=== PATIENT | male | born 1940 | race Caucasian/White ===

== ENCOUNTER → 2018-05-03 | Outpatient (CLI) | payer OTHER ==
[~2018-05-03] MED LIST: ASPIRIN81 M1 PO; COREG3.125 MG PO; KEFLEX500 MG PO; LISINOPRIL2.5 MG PO; SIMVASTATIN40 MG PO
[2018-05-03 09:32] LABS: CHLORIDE 106 mmol/L (98-107); POTASSIUM 4.3 mmol/L (3.5-5.1); SODIUM 139 mmol/L (136-145)
[2018-05-03 09:39] LABS: BUN 26 mg/dl (7-24); CHOLESTEROL 122 mg/dL (<200); CREATININE 1.12 mg/dL (0.70-1.30); HDL CHOLESTEROL 45 mg/dl (40-60); LDL CHOLESTEROL 61 mg/dL (9-159); SGOT/AST 11 IU/L (3-35); SGPT/ALT 15 U/L (12-78); TRIGLYCERIDES 80 mg/dl (<150); VLDL CHOLESTEROL 16 mg/dL (6-40)
== END | disposition home or self-care (01) ==
LOC: LAB 07:53
PROVIDERS: Internal Medicine Interventional Cardiology
DX: I25.10 Atherosclerotic heart disease of native coronary artery without angina pectoris (principal); I10 Essential (primary) hypertension; E78.2 Mixed hyperlipidemia; I65.29 Occlusion and stenosis of unspecified carotid artery

== ENCOUNTER → 2018-05-10 | Outpatient (CLI) | payer OTHER | END | disposition home or self-care (01) | LOC: US 09:47 | DX: I65.23 Occlusion and stenosis of bilateral carotid arteries (principal); I25.10 Atherosclerotic heart disease of native coronary artery without angina pectoris; I10 Essential (primary) hypertension; E78.2 Mixed hyperlipidemia ==

== ENCOUNTER → 2023-07-29 | Outpatient (CLI) | payer OTHER ==
[2023-07-29 12:53] LABS: BUN 19 mg/dl (9-23); CHLORIDE 105 mmol/L (98-107); CHOLESTEROL 94 mg/dL (<200); LDL CHOLESTEROL 40 mg/dL (9-159); POTASSIUM 4.4 mmol/L (3.4-5.1); SGPT/ALT < 7 U/L (10-49); TRIGLYCERIDES 67 mg/dl (<150)
== END | disposition home or self-care (01) ==
LOC: LAB 11:26
PROVIDERS: ATTEND Internal Medicine Interventional Cardiology
DX: E78.2 Mixed hyperlipidemia (principal); I25.10 Atherosclerotic heart disease of native coronary artery without angina pectoris; R73.9 Hyperglycemia, unspecified

== ENCOUNTER 2024-10-30 08:08 | Inpatient (IN) | payer OTHER ==
[~2024-10-30] VITALS: Ht 172.7 cm; Wt 86.0 kg
[2024-10-30] VITALS (37 sets, daily range): BP systolic 65–146; BP diastolic 31–84
[2024-10-30] MEDS ORDERED: Piperacillin Sodium/Tazobact 100 ML IV ONE (08:35)
[2024-10-30] MEDS ORDERED: Vancomycin Hydrochloride 250 ML IV ONE (08:35)
[2024-10-30] MEDS ORDERED: Albuterol Sulf/Ipratropium 3 ML VIAL NEB SCH ×2 (08:45→13:10)
[2024-10-30 09:13] LABS: HEMATOCRIT 27.5 % (42.0-52.0); MEAN CELL VOLUME 99.3 fl (80.0-94.0); MEAN CORPUSCULAR HGB 31.4 pg (27.0-31.0); MEAN CORPUSCULAR HGB CONC 31.6 g/dl (33.0-37.0); PLATELET COUNT AUTOMATED 34 10*3/uL (130-400); RED BLOOD COUNT 2.77 10*6/uL (4.50-5.90); WHITE BLOOD COUNT 32.1 10*3/uL (4.8-10.8)
[2024-10-30 09:14] LABS: ARTERIAL BLOOD GAS PH 7.279 (7.350-7.450)
[2024-10-30 09:15] LABS: ABG BASE EXCESS -4.5 mmol/L (-2.0-3.0)
[2024-10-30 09:21] LABS: MANUAL DIFF REFLEX YES
[2024-10-30 09:22] LABS: POTASSIUM 4.6 mmol/L (3.4-5.1); TOTAL PROTEIN 6.5 gm/dL (6.0-8.0)
[2024-10-30 09:24] LABS: ACANTHOCYTES FEW; BASOPHILS 2 % (0-1); OVALOCYTES FEW; PLATELET SUFFICIENCY LOW (NORMAL); POLYCHROMASIA SLIGHT; SCHISTOCYTES FEW; TOTAL CELLS COUNTED 100 #CELLS
[2024-10-30 09:25] LABS: TARGET CELLS FEW
[2024-10-30] MEDS ORDERED: ASPIRIN, CHEWABLE 81 MG TAB PO ONE (09:25)
[2024-10-30] MEDS ORDERED: SODIUM CHLORIDE 0.9% 100 ML BAG IV ONE (09:50)
[2024-10-30] MEDS ORDERED: Iodixanol 320 100 ML VIAL IV ONE (09:50)
[2024-10-30] MEDS ORDERED: SODIUM CHLORIDE 0.9% 1,000 ML IV ONE (09:55)
[2024-10-30] MEDS ORDERED: Acetaminophen/Hydrocodone 5 MG/325 MG TABLET PO PRN (10:30)
[2024-10-30] MEDS ORDERED: Ondansetron Hydrochloride 4 MG/2 ML VIAL IV PRN (10:30)
[2024-10-30] MEDS ORDERED: BISACODYL 5 MG TAB PO PRN (10:30)
[2024-10-30] MEDS ORDERED: ACETAMINOPHEN 325 MG TAB PO PRN (10:30)
[2024-10-30] MEDS ORDERED: HEPARIN SODIUM 250 ML IV SCH (12:35)
[2024-10-30] MEDS ORDERED: ATORVASTATIN CALCIUM 40 MG TABLET PO SCH (13:20)
[2024-10-30] MEDS ORDERED: AZITHROMYCIN 250 ML IV SCH (14:00)
[2024-10-30] MEDS ORDERED: SODIUM CHLORIDE 0.9% 500 ML IV ONE ×2 (14:45→14:59)
[2024-10-30] MEDS ORDERED: FUROSEMIDE 40 MG/4 ML VIAL IV ONE ×2 (16:25→23:30)
[2024-10-30] MEDS ORDERED: NOREPINEPHRINE BITARTRATE/D5W 250 ML IV SCH (16:25)
[2024-10-30] MEDS ORDERED: LORazepam 2 MG/ML VIAL IV ONE (16:40)
[2024-10-30] MEDS ORDERED: NOREPINEPHRINE BITARTRATE/D5W 250 ML IV ONE (16:45)
[2024-10-30] MEDS ORDERED: LORazepam 2 MG/ML VIAL ONE (16:55)
[2024-10-30] MEDS ORDERED: DEXMEDETOMIDINE IN 0.9 % NACL 100 ML IV SCH (17:15)
[2024-10-30 17:28] LABS: BILIRUBIN 1+ (Negative); BLOOD Negative (Negative); CLARITY Clear (Clear); COLOR Dark Yellow (Yellow); GLUCOSE Negative (Negative); KETONE Trace (Negative); LEUKO ESTERASE Negative (Negative); NITRITE Negative (Negative); SPECIFIC GRAVITY >= 1.030 (1.001-1.030)
[2024-10-30 17:40] LABS: BACTERIA 1+; CALCIUM OXALATE CRYSTALS Trace
[2024-10-30] MEDS ORDERED: CEFEPIME HCL IN DEXTROSE 5 % 50 ML IV SCH (18:00)
[2024-10-30] MEDS ORDERED: VASOPRESSIN 100 ML IV SCH (19:10)
[2024-10-30] MEDS ORDERED: CALCIUM GLUC IN NACL, ISO-OSM 100 ML IV ONE (19:20)
[2024-10-30] MEDS ORDERED: SODIUM BICARBONATE 50 MEQ/50 ML VIAL IV ONE (19:20)
[2024-10-30 19:24] LABS: ABG O2 SATURATION 91.1 % (94.0-98.0); ARTERIAL BLOOD GAS PH 7.275 (7.350-7.450); ARTERIAL BLOOD GAS PO2 68.8 mmHg (83.0-108.0)
[2024-10-30] MEDS ORDERED: VASOPRESSIN 100 ML IV ONE (19:25)
[2024-10-30 19:26] LABS: ABG BASE EXCESS -6.4 mmol/L (-2.0-3.0)
[2024-10-30 21:28] LABS: MEAN CELL VOLUME 100.4 fl (80.0-94.0); MEAN CORPUSCULAR HGB CONC 30.9 g/dl (33.0-37.0); PLATELET COUNT AUTOMATED 30 10*3/uL (130-400); RED BLOOD COUNT 2.29 10*6/uL (4.50-5.90); RED CELL DISTRI WIDTH 17.2 % (0-14.5); WHITE BLOOD COUNT 36.2 10*3/uL (4.8-10.8)
[2024-10-30 21:30] LABS: MANUAL DIFF REFLEX YES
[2024-10-30 21:51] LABS: TOTAL CELLS COUNTED 100 #CELLS
[2024-10-30 21:54] LABS: ACANTHOCYTES FEW; BURR CELLS FEW; PLATELET SUFFICIENCY LOW (NORMAL); TARGET CELLS FEW
[2024-10-30] MEDS ORDERED: GUAIFENESIN 600 MG TAB ER PO SCH (22:00)
[2024-10-30] MEDS ORDERED: Haloperidol Lactate 5 MG/ML AMP IV PRN (22:15)
[2024-10-31] VITALS (50 sets, daily range): BP systolic 61–138; BP diastolic 31–66
[2024-10-31 04:33] LABS: HEMATOCRIT 21.8 % (42.0-52.0); MEAN CELL VOLUME 98.6 fl (80.0-94.0); MEAN CORPUSCULAR HGB 30.8 pg (27.0-31.0); MEAN CORPUSCULAR HGB CONC 31.2 g/dl (33.0-37.0); PLATELET COUNT AUTOMATED 30 10*3/uL (130-400); RED BLOOD COUNT 2.21 10*6/uL (4.50-5.90); RED CELL DISTRI WIDTH 17.2 % (0-14.5); WHITE BLOOD COUNT 31.2 10*3/uL (4.8-10.8)
[2024-10-31 04:34] LABS: MANUAL DIFF REFLEX YES
[2024-10-31 05:08] LABS: FREE T4 0.78 ng/dl (0.89-1.76); POTASSIUM 4.3 mmol/L (3.4-5.1); TOTAL PROTEIN 5.7 gm/dL (6.0-8.0)
[2024-10-31 05:14] LABS: VITAMIN D, 25-HYDROXY 44.3 ng/mL (30-100)
[2024-10-31 05:26] LABS: ATYPICAL LYMPHS 1 % (0-0); PLATELET SUFFICIENCY LOW (NORMAL); POLYCHROMASIA SLIGHT; TOTAL CELLS COUNTED 100 #CELLS
[2024-10-31 05:27] LABS: ACANTHOCYTES FEW; BURR CELLS FEW; SCHISTOCYTES FEW; TARGET CELLS FEW
[2024-10-31 05:28] LABS: TOXIC GRANULATION SLIGHT
[2024-10-31] MEDS ORDERED: SODIUM CHLORIDE 0.9% 500 ML IV ONE (05:41)
[2024-10-31] MEDS ORDERED: VANCOMYCIN/WATER FOR INJ (PEG) 250 ML IV SCH (06:00)
[2024-10-31] MEDS ORDERED: FUROSEMIDE 40 MG/4 ML VIAL IV SCH ×2 (06:00→10:00)
[2024-10-31] MEDS ORDERED: SUCRALFATE 1 GM TAB PO SCH (07:30)
[2024-10-31] MEDS ORDERED: Succinylcholine Chloride 200 MG/10 ML SYRINGE IV ONE (09:41)
[2024-10-31] MEDS ORDERED: ETOMIDATE 20 MG/10 ML VIAL IV ONE (09:41)
[2024-10-31] MEDS ORDERED: ASPIRIN ENTERIC COATED 81 MG TAB PO SCH (10:00)
[2024-10-31] MEDS ORDERED: Albuterol Sulf/Ipratropium 3 ML VIAL NEB SCH (10:20)
[2024-10-31] MEDS ORDERED: IPRATROPIUM BROMIDE 0.5 MG/2.5 ML AMP NEB SCH (10:20)
[2024-10-31] MEDS ORDERED: PROPOFOL 100 ML IV ONE ×2 (10:52→13:30)
[2024-10-31] MEDS ORDERED: VANCOMYCIN1.25 GM/21 IV (11:47)
[2024-10-31] MEDS ORDERED: [UNRECOGNIZED DRUG - OTHER] IV (11:47)
[2024-10-31] MEDS ORDERED: CEFEPIME2 GM/100 M IV (11:47)
[2024-10-31] MEDS ORDERED: Protonix IV (11:47)
[2024-10-31] MEDS ORDERED: PRECEDEX IV (11:47)
[2024-10-31] MEDS ORDERED: AZITHROMYCIN500 M1 IV (11:47)
[2024-10-31] MEDS ORDERED: NOREPINEPH4 MG/2505 IV (11:47)
[2024-10-31] MEDS ORDERED: Carafate1 GM PO (11:47)
[2024-10-31] MEDS ORDERED: PROPOFOL 50 ML IV SCH (11:50)
[2024-10-31] MEDS ORDERED: Pantoprazole Sodium 40 MG VIAL IV SCH (18:00)
== END 2024-10-31 13:30 | disposition short-term general hospital (02) | DRG 871 ==
LOC: ED 08:08 → EDHOLD 10:05 → ICCU 10:05 → EDHOLD 10:37 → ICCU 14:19
PROVIDERS: Emergency Medicine; Student in an Organized Health Care Education/Training Program; ADMIT Internal Medicine; ATTEND Internal Medicine
PROC: 02HV33Z Insertion of Infusion Device into Superior Vena Cava, Percutaneous Approach (ICD-10-PCS; 2024-10-30)
PROC: B548ZZA Ultrasonography of Superior Vena Cava, Guidance (ICD-10-PCS; 2024-10-30)
PROC: 5A09357 Assistance with Respiratory Ventilation, Less than 24 Consecutive Hours, Continuous Positive Airway Pressure (ICD-10-PCS; 2024-10-30)
PROC: 30233N1 Transfusion of Nonautologous Red Blood Cells into Peripheral Vein, Percutaneous Approach (ICD-10-PCS; principal; 2024-10-31)
PROC: 0BH17EZ Insertion of Endotracheal Airway into Trachea, Via Natural or Artificial Opening (ICD-10-PCS; 2024-10-31)
DX: A41.9 Sepsis, unspecified organism (principal); I21.A1 Myocardial infarction type 2; J15.69 Pneumonia due to other Gram-negative bacteria; J96.01 Acute respiratory failure with hypoxia; N17.0 Acute kidney failure with tubular necrosis; R65.21 Severe sepsis with septic shock; E44.0 Moderate protein-calorie malnutrition; E87.1 Hypo-osmolality and hyponatremia; E87.20 Acidosis, unspecified; K92.2 Gastrointestinal hemorrhage, unspecified; I48.91 Unspecified atrial fibrillation; D64.9 Anemia, unspecified; Z96.652 Presence of left artificial knee joint; D69.6 Thrombocytopenia, unspecified; R73.9 Hyperglycemia, unspecified; I50.9 Heart failure, unspecified; I25.10 Atherosclerotic heart disease of native coronary artery without angina pectoris; I65.21 Occlusion and stenosis of right carotid artery; D64.89 Other specified anemias; Z87.891 Personal history of nicotine dependence; Z83.3 Family history of diabetes mellitus; Z82.0 Family history of epilepsy and other diseases of the nervous system; Z79.82 Long term (current) use of aspirin; Z79.899 Other long term (current) drug therapy; Z95.5 Presence of coronary angioplasty implant and graft; Z68.28 Body mass index [BMI] 28.0-28.9, adult

== ENCOUNTER → 2024-11-18 | Outpatient (CLI) | payer OTHER ==
[~2024-11-18] MED LIST changes: +AZITHROMYCIN500 M1 IV; +CEFEPIME2 GM/100 M IV; +CEFTRIAXONE2 G1 IV; +Carafate1 GM PO; +FUROSEMIDE20 M1 PO; +Lopressor25 MG PO; +NOREPINEPH4 MG/2505 IV; +PANTOPRAZOLE SO40 MG PO; +POTASSIUM CHLO10 ME5 PO; +PRECEDEX IV; +Protonix IV; +ROSUVASTATIN CA20 MG PO; +VANCOMYCIN1.25 GM/21 IV; +[UNRECOGNIZED DRUG - OTHER] IV
[2024-11-18 11:17] LABS: HEMATOCRIT 29.4 % (42.0-52.0); MEAN CORPUSCULAR HGB 30.6 pg (27.0-31.0); MEAN CORPUSCULAR HGB CONC 30.3 g/dl (33.0-37.0); NUCLEATED RED BLOOD CELL 0.5 % (0.0-0.0); PLATELET COUNT AUTOMATED 33 10*3/uL (130-400); RED BLOOD COUNT 2.91 10*6/uL (4.50-5.90); RED CELL DISTRI WIDTH 17.2 % (0-14.5); RETICULOCYTE % 4.35 % (0.50-2.50); WHITE BLOOD COUNT 3.7 10*3/uL (4.8-10.8)
[2024-11-18 11:19] LABS: MANUAL DIFF REFLEX YES
[2024-11-18 11:23] LABS: BILIRUBIN Negative (Negative); BLOOD Negative (Negative); CLARITY Clear (Clear); COLOR Yellow (Yellow); GLUCOSE Negative (Negative); KETONE Negative (Negative); LEUKO ESTERASE Negative (Negative); NITRITE Negative (Negative); UROBILINOGEN 0.2 E.U./dl (0.0-1.0)
[2024-11-18 11:42] LABS: ALKALINE PHOSPHATASE 87 U/L (46-116); BUN 17 mg/dl (9-23); CHLORIDE 103 mmol/L (98-107); POTASSIUM 4.9 mmol/L (3.4-5.1); SGPT/ALT 11 U/L (5-49); TOTAL PROTEIN 6.6 gm/dL (6.0-8.0); WBC 0-2 wbc/hpf (0-5)
[2024-11-18 11:44] LABS: RBC 0-2 rbc/hpf (0-2)
[2024-11-18 12:03] LABS: ACANTHOCYTES FEW; BASOPHILS 1 % (0-1); OVALOCYTES MODERATE; PLATELET SUFFICIENCY LOW (NORMAL); TOTAL CELLS COUNTED 100 #CELLS
== END | disposition home or self-care (01) ==
LOC: LAB 10:51
PROVIDERS: ATTEND Family Medicine
DX: R79.89 Other specified abnormal findings of blood chemistry (principal); R53.83 Other fatigue; D61.818 Other pancytopenia

== ENCOUNTER → 2024-11-25 | Outpatient (CLI) | payer OTHER ==
[2024-11-25 09:21] LABS: HEMATOCRIT 28.3 % (42.0-52.0); MEAN CELL VOLUME 101.1 fl (80.0-94.0); MEAN CORPUSCULAR HGB 30.7 pg (27.0-31.0); MEAN CORPUSCULAR HGB CONC 30.4 g/dl (33.0-37.0); PLATELET COUNT AUTOMATED 32 10*3/uL (130-400); RED CELL DISTRI WIDTH 17.3 % (0-14.5); RETICULOCYTE % 2.62 % (0.50-2.50); WHITE BLOOD COUNT 3.8 10*3/uL (4.8-10.8)
[2024-11-25 09:57] LABS: POTASSIUM 3.9 mmol/L (3.4-5.1)
[2024-11-25 10:00] LABS: BILIRUBIN Negative (Negative); BLOOD Negative (Negative); CLARITY Clear (Clear); COLOR Yellow (Yellow); GLUCOSE Negative (Negative); KETONE Negative (Negative); LEUKO ESTERASE Negative (Negative); NITRITE Negative (Negative); UROBILINOGEN 0.2 E.U./dl (0.0-1.0)
[2024-11-25 10:43] LABS: BACTERIA TRACE; MUCOUS 1+; WBC 0-2 wbc/hpf (0-5)
[2024-11-25 10:49] LABS: MANUAL DIFF REFLEX YES
[2024-11-25 10:55] LABS: ATYPICAL LYMPHS 1 % (0-0); BASOPHILS 6 % (0-1); TOTAL CELLS COUNTED 100 #CELLS
[2024-11-25 10:57] LABS: OVALOCYTES FEW
[2024-11-25 10:58] LABS: PLATELET SUFFICIENCY LOW (NORMAL); SCHISTOCYTES FEW
== END | disposition home or self-care (01) ==
LOC: LAB 08:51
PROVIDERS: ATTEND Family Medicine
DX: R79.89 Other specified abnormal findings of blood chemistry (principal); R53.83 Other fatigue; E78.5 Hyperlipidemia, unspecified; E55.9 Vitamin D deficiency, unspecified

== ENCOUNTER → 2025-01-23 | Outpatient (CLI) | payer OTHER ==
[2025-01-23 09:49] LABS: HEMATOCRIT 26.6 % (42.0-52.0); MEAN CELL VOLUME 97.8 fl (80.0-94.0); MEAN CORPUSCULAR HGB 29.8 pg (27.0-31.0); MEAN CORPUSCULAR HGB CONC 30.5 g/dl (33.0-37.0); MEAN PLATELET VOLUME 12.7 fl (9.6-12.3); PLATELET COUNT AUTOMATED 107 10*3/uL (130-400); RED BLOOD COUNT 2.72 10*6/uL (4.50-5.90); RED CELL DISTRI WIDTH 17.7 % (0-14.5)
[2025-01-23 09:51] LABS: MANUAL DIFF REFLEX YES
[2025-01-23 10:16] LABS: BASOPHILS 3 % (0-1); TOTAL CELLS COUNTED 100 #CELLS
[2025-01-23 10:17] LABS: ACANTHOCYTES FEW; BURR CELLS FEW; OVALOCYTES FEW; PLATELET SUFFICIENCY LOW (NORMAL); POLYCHROMASIA SLIGHT; SCHISTOCYTES FEW; TARGET CELLS FEW
[2025-01-23 10:31] LABS: BUN 23 mg/dl (9-23); CHLORIDE 106 mmol/L (98-107); POTASSIUM 3.8 mmol/L (3.4-5.1)
== END | disposition home or self-care (01) ==
LOC: LAB 09:26
PROVIDERS: ATTEND Student in an Organized Health Care Education/Training Program
DX: N17.9 Acute kidney failure, unspecified (principal)

== ENCOUNTER 2025-04-11 21:14 | Emergency (ER) | payer OTHER ==
[~2025-04-11] VITALS: Ht 167.6 cm; Wt 77.6 kg
[2025-04-11] MEDS ORDERED: SODIUM CHLORIDE 0.9% 1,000 ML IV ONE (21:40)
[2025-04-11 21:57] LABS: BASO % 0.3 % (0.0-1.0); EOS % 0.6 % (1.0-4.0); HEMATOCRIT 23.7 % (42.0-52.0); MEAN CELL VOLUME 97.5 fl (80.0-94.0); MEAN CORPUSCULAR HGB 32.9 pg (27.0-31.0); MEAN CORPUSCULAR HGB CONC 33.8 g/dl (33.0-37.0); MEAN PLATELET VOLUME 9.9 fl (9.6-12.3); MONO # 0.3 10*3/uL (0.1-1.0); MONO % 8.8 % (3.0-9.0); NEUT # 2.1 10*3/uL (2.3-7.9); NEUT % 60.1 % (47.0-73.0); PLATELET COUNT AUTOMATED 69 10*3/uL (130-400); RED BLOOD COUNT 2.43 10*6/uL (4.50-5.90); RED CELL DISTRI WIDTH 15.9 % (0-14.5); WHITE BLOOD COUNT 3.4 10*3/uL (4.8-10.8)
[2025-04-11 22:25] LABS: POTASSIUM 3.5 mmol/L (3.4-5.1)
== END 2025-04-12 00:42 | disposition home or self-care (01) ==
LOC: ED 21:14
PROVIDERS: Internal Medicine
DX: K59.00 Constipation, unspecified (principal); D61.818 Other pancytopenia; I12.9 Hypertensive chronic kidney disease with stage 1 through stage 4 chronic kidney disease, or unspecified chronic kidney disease; N18.32 Chronic kidney disease, stage 3b; Z79.899 Other long term (current) drug therapy; Z98.890 Other specified postprocedural states